=== PATIENT | female | born 1985 | race Asian ===

== ENCOUNTER 2024-06-03 22:40 | Inpatient (IN) | payer MEDICAID, SELFPAY ==
[2024-06-03 22:43] VITALS: BMI 31.8
[2024-06-03 23:08] VITALS: BP 169/95; PULSE 89; RESP 20; TEMP 37.3; O2SAT 97
--- NOTE | 2024-06-03 23:32 | XR_ITS ---
Examination: Abdomen sonogram, Limited Date and time of exam: June 03, 2024 11:43 PM Indications: Onset right upper abdominal pain beginning 4 days ago Technique: Real-time marinelli scale transabdominal sonographic images of the upper abdomen obtained. Findings: Cholelithiasis Thickened gallbladder wall 0.7 cm Common bile duct 0.4 cm Pancreatic head 3.2 cm Liver 12.4 cm right infiltration no focal liver lesions Normal hepatopedal portal venous flow Patent IVC Impression: Cholelithiasis Cholecystitis
--- NOTE | 2024-06-03 23:33 | PD.EDRME ---
Rapid Medical Screening Exam E Arrival date/time: 06/03/24 22:40 38F with history of gallstones presents to ED with 4 days of worsening RUQ pain and N/V. Patient denies dysuria, diarrhea, and vaginal bleeding. Chief Complaint: Abdominal Pain Vital signs: Vital Signs Temperature 99.1 F 06/03/24 23:08 Pulse Rate 89 06/03/24 23:08 Respiratory Rate 20 06/03/24 23:08 Blood Pressure 169/95 H 06/03/24 23:08 Pulse Oximetry (%) 97 06/03/24 23:08 Oxygen Delivery Method Room Air 06/03/24 23:08
[2024-06-04] VITALS (20 sets, daily range): BP systolic 144–187; BP diastolic 91–119; PULSE 80–100; RESP 15–26; TEMP 36.4–37.2; O2SAT 93–99; BMI 31.4
[2024-06-04 00:21] LABS: Basophils % (Auto) 0 % (0-2.5); Eosinophils % (Auto) 0 % (0-10); Hematocrit 41.7 % (36.0-46.0); Hemoglobin 14.4 g/dL (12.0-16.0); Immature Granulocytes % (Auto) 0 % (0-0); Immature Granulocytes Auto 0.05 Thou/mm3 (0.00-0.00); Lymphocytes # (Auto) 1.2 Thou/mm3 (1.0-4.8); Lymphocytes % (Auto) 9 % (10-50); Mean Corpuscular HGB Conc 34.5 g/dl (31.0-37.0); Mean Corpuscular Hemoglobin 29.6 pg (25.0-35.0); Mean Corpuscular Volume 86 fL (80-100); Monocytes # (Auto) 1.5 Thou/mm3 (0.0-0.8); Monocytes % (Auto) 10 % (0-12); Neutrophils # (Auto) 11.1 Thou/mm3 (1.8-7.7); Neutrophils % (Auto) 80 % (37-80); Nucleated Red Blood Cell % 0 /100 WBC (0); Platelet Count 316 Thou/mm3 (140-440); RDW Standard Deviation 40.3 fL (36.4-46.3); Red Blood Count 4.86 Miln/mm3 (4.00-5.20); White Blood Count 13.9 Thou/mm3 (3.6-11.0)
[2024-06-04 00:33] LABS: Alanine Aminotransferase 29 U/L (10-49); Albumin, Serum 4.6 gm/dL (3.5-5.0); Albumin/Globulin Ratio 1.5 (1.2-2.2); Alkaline Phosphatase 112 U/L (46-116); Anion Gap 10 (7-16); Aspartate Amino Transferase 16 U/L (0-34); BUN/Creatinine Ratio 10 Ratio (12-20); Bilirubin,Total 0.8 mg/dL (0.3-1.2); Blood Urea Nitrogen 8 mg/dL (9-23); Calcium 9.3 mg/dL (8.3-10.6); Calcium (Corrected) 9.3 mg/dL (8.5-10.1); Carbon Dioxide 26.2 mMol/L (20.0-31.0); Chloride 99 mMol/L (98-107); Creatinine (Component) 0.8 mg/dL (0.6-1.3); Estimated Creatinine Clearance 96.5 mL/min (>60); Glucose 130 mg/dL (74-106); Lipase 28 U/L (12-53); Osmolality,Calculated 270 (275-295); Potassium 3.9 mMol/L (3.4-5.1); Sodium 135 mMol/L (136-145); Total Protein 7.6 gm/dL (5.7-8.2); eGFR > 60 See Note
[2024-06-04] MEDS: MORPHINE SULF INJ 10 MG/ML VIAL 5 MG IVP (01:40)
[2024-06-04] MEDS: ONDANSETRON INJ 2 MG/ML INJ 2 ML 4 MG IV (01:40)
[2024-06-04] MEDS: PIPER/TAZO INJ 3.375 GM in SODIUM CHLORIDE 0.9% (Popper) 50 ML IV ×3 (01:45→21:29)
[2024-06-04 01:55] LABS: HCG Qualitative,Urine Negative
--- NOTE | 2024-06-04 02:03 | EDNOTE_ITS ---
ED Abdominal Pain RME/HPI General Chief Complaint: Abdominal Pain Stated complaint: Abdominal pain, NV x 4 days Time seen by provider: 06/04/24 05:54 Arrival date/time: 06/03/24 22:40 Source: patient and family Mode of arrival: ambulatory Limitations: no limitations RME / HPI RME / HPI narrative: DR CHACON MAIN ED EVALUATION: 38-year-old female with a history of gallstones who presents to the ED with four days of worsening right upper quadrant (RUQ) pain accompanied by nausea and vomiting. She denies dysuria, diarrhea, or vaginal bleeding. Related Data Allergies Allergy/AdvReac Type Severity Reaction Status Date / Time No Known Allergies Allergy Verified 06/03/24 22:42 Review of Systems Review of Systems Systems Reviewed: All systems reviewed, normal except as documented Past Medical History Past Medical History CARDIAC: Negative Congestive Heart Failure RESPIRATORY: Negative Chronic Obstructive Pulmonary Disease (COPD) GENITOURINARY: Negative Renal Disease ENDOCRINE: Negative Diabetes Mellitus Type 1 or Diabetes Mellitus Type 2 Social History SMOKING STATUS: Never smoker ED Exam Narrative Physical exam: GENERAL APPEARANCE: alert and oriented x 4, well-developed, well-nourished, no acute distress VITALS: All vitals were reviewed and the pulse ox is 98% on room air, which is normal according to my interpretation. HEENT: Normocephalic, atraumatic; pupils equal, round, reactive to light; EOMI; mucous membranes pink, moist; oropharynx clear NECK: Supple LUNGS: CTABL; no wheezes, no rales, no rhonchi HEART: Regular rate, regular rhythm; normal S1, S2; no murmurs ABDOMEN: non distended; normal BS; soft, no tenderness, no guarding, no rebound; no masses, no organomegaly, no hernia BACK: no CVA tenderness EXTREMITIES: atraumatic; no edema NEUROLOGIC: awake; alert and oriented x4; cranial nerves II-XII grossly intact; no focal sensory or motor deficits PSYCHIATRIC: appropriate mood and affect SKIN: warm, dry, normal color; no rashes General Limitations: Present no limitations Course Quality Measures none Orders Category Date Time Status IV [Insert IV] NOW Care 06/04/24 01:33 Active NPO NOW Care 06/04/24 01:21 Active Consult to General Surgery Stat Cons 06/04/24 01:45 Ordered Diet NPO (NOW) Diet 06/04/24 01:21 Active US gall bladder Stat Exams 06/03/24 23:32 Completed CBC Stat Lab 06/03/24 23:55 Completed CMP [Comprehensive Metabolic Panel] Stat Lab 06/03/24 23:55 Completed HCG Qualitative,Urine Stat Lab 06/04/24 00:41 Completed Lipase Stat Lab 06/03/24 23:55 Completed Morphine Inj Med 06/04/24 01:33 Discontinued 5 mg IVP X1 ONE Ondansetron Inj [Zofran Inj] Med 06/04/24 01:33 Discontinued 4 mg IV X1 ONE Piper/Tazo Inj [Zosyn Inj] 3.375 gm Med 06/04/24 01:19 Discontinued SODIUM CHLORIDE 0.9% (Popper) [NS 0.9% (Popper)] 50 ml IV X1 Vital Signs Vital signs: Vital Signs Temperature 99.1 F 06/03/24 23:08 Pulse Rate 89 06/03/24 23:08 Respiratory Rate 20 06/03/24 23:08 Blood Pressure 169/95 H 06/03/24 23:08 Pulse Oximetry (%) 97 06/03/24 23:08 Oxygen Delivery Method Room Air 06/03/24 23:08 Abdominal Pain MDM MDM Narrative MDM Narrative:: 0600 [facility]. Past medical, surgical, social and family history reviewed. Vitals and home medications reviewed. Results and treatment plan discussed. I will assume the care of the patient at this time and will follow the patient, pending consultation by Dr. Valles and final disposition. Scribe Attestation: I, Keshav Munson, am scribing for and in the presence of Dr. Chacon. Provider Notation: Although this document has been carefully reviewed, there may still be some phonetic and other typographical errors. These errors are purely grammatical due to imperfections in the software program and should not be construed in any way to compromise the substance of the patient's medical care during this visit. Patient data External records reviewed:: [facility] previous records Clinical information provided by:: patient Social determinants that could affect healthcare access:: none Patient has the following chronic illnesses:: see PMH How is presenting disease/condition affected by chronic disease/condition?: uneffected by Evaluation data The following diagnostics were reviewed and interpreted by me:: lab results and radiology exam(s) Lab and/or radiology exams considered but not ordered:: na Interpretation Summary: Examination: Abdomen sonogram, Limited Date and time of exam: June 03, 2024 11:43 PM Indications: Onset right upper abdominal pain beginning 4 days ago Technique: Real-time marinelli scale transabdominal sonographic images of the upper abdomen obtained. Findings: Cholelithiasis Thickened gallbladder wall 0.7 cm Common bile duct 0.4 cm Pancreatic head 3.2 cm Liver 12.4 cm right infiltration no focal liver lesions Normal hepatopedal portal venous flow Patent IVC Impression: Cholelithiasis Cholecystitis Dictated By: Lawrence Tirado MD Medications / Prescriptions Medications or Prescriptions considered but not ordered:: na Medication administrations:: Medication Administration History Discontinued Medications Piperacillin Sod/Tazobactam (Sod 3.375 gm/ Sodium Chloride) 50 mls @ 100 mls/hr IV X1 ONE Stop: 06/04/24 01:48 Last Infusion: 06/04/24 02:17 Dose: Infused Documented By: Admin: 06/04/24 01:45 Dose: 100 mls/hr Documented By: CVL Morphine Sulfate (Morphine Sulf Inj 10 Mg/Ml Vial) 5 mg IVP X1 ONE Stop: 06/04/24 01:34 Last Admin: 06/04/24 01:40 Dose: 5 mg Documented By: CVL Ondansetron HCl (Ondansetron Inj 2 Mg/Ml Inj 2 Ml) 4 mg IV X1 ONE Stop: 06/04/24 01:34 Last Admin: 06/04/24 01:40 Dose: 4 mg Documented By: CVL as above Consultations Consultation(s) initiated? (list below): Yes Consultation #1 (Physician, Specialty, Details): Dr. Valles made aware of the patient?s HPI, PMHx, lab and/or radiology results. Treatment plan was discussed. Accepts patient for consultation. Diagnosis Differential diagnosis abdominal pain: abdominal pain, acute appendicitis, endometriosis, gastroenteritis, pancreatitis and small bowel obstruction Most likely diagnosis given after review of the tests above:: Biliary colic Admission Indicated Admission indicated?: indicated Admission Request Was there a request for admission?: No Disposition Plan Disposition Plan: other (specify) (Sign out pending final disposition) Discharge Plan Prescriptions/Referrals Referrals: No Primary/Family,Physician [Primary Care Provider] - In 1 week Problem List Clinical Impression: Biliary colic Patient/Caregiver Discharge Instructions Print Language: Moldovan
--- NOTE | 2024-06-04 07:33 | PD.EDADDENDU ---
Emergency Room Addendum <Marisol Dubon - Last Filed: 06/04/24 09:42> Addendum Narrative: 0600: Care assumed from Dr. Chacon, the previous shift emergency physician. Past medical, surgical, social and family history reviewed. Vitals and home medications reviewed. I will assume the care of the patient at this time, pending consultation with Dr. Valles and final disposition. Please refer to the emergency department record for history and examination from initial visit.? Physical exam by me shows patient under no acute distress at this time. 07: Dr. Valles called back and states she will come see the patient at 0930 hours. 0940: Discussed test HPI, PMHx, lab, radiology results and/or management with Dr. Valles. Will admit for further evaluation and management. <Irving Mancuso MD - Last Filed: 06/04/24 09:43> Addendum Narrative: 0600: Care assumed from Dr. Chacon, the previous shift emergency physician. Past medical, surgical, social and family history reviewed. Vitals and home medications reviewed. I will assume the care of the patient at this time, pending consultation with Dr. Valles and final disposition. Please refer to the emergency department record for history and examination from initial visit.? Physical exam by me shows patient under no acute distress at this time. 07: Dr. Valles called back and states she will come see the patient at 0930 hours. 0940: Discussed test HPI, PMHx, lab, radiology results and/or management with Dr. Valles. Will admit for further evaluation and management. Dr. Odom arrived saw the patient and plans to admit the patient at 0940 hrs.
--- NOTE | 2024-06-04 10:02 | PD.SURHP ---
HPI HPI 38F presenting with abdominal pain. Pt reports she has had RUQ pain on and off for the past four days, which is worsened after eating and sometimes was very severe. Last night because the pain was unrelenting she presented to ER and underwent US suspicious for cholecystitis. This am pt reports feeling better with 3/10 pain, however she feels it is gradually worsening again and she is afraid to eat. She denies any associated nausea, fever or diarrhea. Pt reports she had similar symptoms 2 years ago and was planned for surgery but it was postponed because of , and she had not had symptoms again until this past week PMH: None PSHx: None Meds: None Allergies: NKDA Social hx: Nonsmoker Review of Systems Review of Systems ROS Unobtainable: All systems reviewed & no additional complaints except as documented Meds Home Medications and Allergies Allergies Allergy/AdvReac Type Severity Reaction Status Date / Time No Known Allergies Allergy Verified 06/03/24 22:42 Exam Vital Signs Temp Pulse Resp BP Pulse Ox O2 Del Method 98.9 F 87 18 166/99 H 96 Room Air 06/04/24 07:08 06/04/24 07:08 06/04/24 07:08 06/04/24 07:08 06/04/24 07:08 06/04/24 02:54 Constitutional Constitutional: no acute distress Routine Respiratory Exam Respiratory: Present no resp distress Routine Abdominal Exam Abdominal: Present soft and tenderness (mild RUQ tenderness); Absent distended, rebound or guarding Results Results: Laboratory Laboratory results: results reviewed Results: Imaging US - abdomen: report reviewed Assessment & Plan Plan 38F presenting with signs and symptoms of acute cholecystitis. I explained benefits/risks of surgery including need for conversion to open, bleeding, infection, hernia, injury to nearby structures requiring major reconstructive surgery which would require transfer to a tertiary center as well as possible biliary leak requiring postoperative drainage or ERCP. All questions were answered and pt is agreeable to proceeding Quality Measures Quality Measures none
[2024-06-04] MEDS: SODIUM CHLORIDE 0.9% 1000 ML 1,000 ML 125 ML IV (10:29)
--- NOTE | 2024-06-04 12:33 | ESOP_ITS ---
Date of Procedure 06/04/24 Pre Op Diagnosis Acute cholecystitis Post Op Diagnosis Same Procedure Laparoscopic cholecystectomy Findings Large edematous gallbladder with impacted stone Procedure Description After discussion of risks and benefits, patient was brought to the operating room, SCDs were placed and general anesthesia was induced. She received preoperative antibiotics and was prepped and draped in the usual sterile fashion. After timeout a supraumbilical incision was made and the skin was elevated while a Veress needle was placed to the incision. Proper positioning was confirmed with a drop test and the abdomen was insufflated to 15 mmHg. At that point the Veress needle was exchanged for a 5 mm camera using a [employer] te chnique. There were no signs of injury from the point of entry. 3 additional ports were placed under direct vision, one 12 mm at the epigastrium, one 5 mm right subcostal and one 5 mm right anterior axillary line. Patient was placed in reverse Trendelenburg with left side down. The gallbladder was noted to be significantly distended and was first aspirated with return of approximately 40 cc of bile. At that point the fundus was grasped and retracted cephalad and the infundibulum was grasped and retracted laterally. Blunt dissection was undertaken and as the gallbladder was very edematous with a thick rind around it, there were points of bleeding that were controlled with direct pressure. Ultimately the critical view of safety was achieved with blunt dissection and the cystic duct and cystic artery were clipped and transected in the usual fashion. Of note there was a small accessory artery posterior to the cystic artery which was also clipped and transected in the usual fashion. The gallbladder was removed from the gallbladder bed using electrocautery and the specimen was removed in an Endo Catch bag via the epigastric incision which had to be widened to accommodate the specimen. The gallbladder bed was examined and hemostasis was achieved with electrocautery and reinforced with Surgicel powder. The epigastric fascia was closed with a 0 Vicryl suture using a Johnson- omason. Again the gallbladder bed was examined and there were no signs of active bleeding. The incisions were irrigated and infiltrated with half percent Marcaine for a total of 30 cc. Incisions were closed with 4 Monocryl and reinforced with Dermabond. Patient was extubated and brought to PACU in stable condition Pathology / specimen Other (Gallbladder) Estimated Blood Loss 100 Surgeon Alexsu Valles MD Surgical Staff Operation Date: 06/04/24 11:15 Case Staff Anesthesiologist: Aroldo Mon RN First Assistant: Alondra Hutchinson
--- NOTE | 2024-06-04 12:51 | SUR.PHASEI ---
received pt and report from PAULA Luis and Dr. Frost. Pt resting with eyes closed, no distress noted. bp slightly elevated, Dr Frost at bedside and made aware. will continue to monitor. dermabond dressing to abd x4, cdi. IV to left land intact, no s/s of infiltration or redness noted. will cont to monitor
--- NOTE | 2024-06-04 12:58 | SUR.PHASEI ---
Dr Tim at bedside, MD made aware pt's bp is still elevated, orders received.
[2024-06-04] MEDS: LABETALOL INJ 5 MG/ML VIAL 20 ML IVP ×3 (13:12→13:31)
--- NOTE | 2024-06-04 13:25 | SUR.PHASEI ---
Dr betts at bedside, MD made aware pt states she has not taken home BP meds in a few days. Pt states she does not remember the last time she took her BP meds.
--- NOTE | 2024-06-04 13:33 | SUR.PHASEI ---
pt recovering well, no distress noted, pt resting with eyes closed. dressing remains cdi, iv remains intact no s/s of infiltration or redness to site. will continue to monitor
--- NOTE | 2024-06-04 14:20 | SUR.PHASEI ---
pt tolerating ice chips, denies any nausea. Pt denies any pain at this time. will continue to monitor
--- NOTE | 2024-06-04 15:00 | SUR.PHASEI ---
Pt c/o 07/20 abd pain, will administer pain meds as ordered.
[2024-06-04] MEDS: MORPHINE SULF INJ 10 MG/ML VIAL 4 MG IVP (15:06)
--- NOTE | 2024-06-04 15:10 | SUR.PHASEI ---
pt c/o being hungry,, pt on a clear liquid diet. Pt tolerating jello and water at this time.
--- NOTE | 2024-06-04 15:50 | SUR.PHASEI ---
report given to PAULA Ac. Pt recovering well, pt denies headache, nausea, and pain. dressing to abd remains CDI. IV still intact, no s/s of infiltration or redness noted.. vss. BP remains at's patient's baseline.
[2024-06-04] MEDS: Lisinopril 2.5 MG TABLET 10 MG PO (17:02)
[2024-06-05] VITALS: BP 147/93; PULSE 93; RESP 17; TEMP 37.2; O2SAT 95
[2024-06-05] MEDS: IBUPROFEN TAB 600 MG TABLET PO (01:07)
[2024-06-05 03:09] VITALS: PULSE 95; RESP 18; RESP 93
[2024-06-05 04:00] VITALS: BP 132/95; PULSE 89; RESP 18; TEMP 36.6; O2SAT 96
[2024-06-05] MEDS: PIPER/TAZO INJ 3.375 GM in SODIUM CHLORIDE 0.9% (Popper) 50 ML IV (05:55)
[2024-06-05 07:25] VITALS: PULSE 90; RESP 20; RESP 95
[2024-06-05 08:00] VITALS: BP 133/88; PULSE 91; RESP 18; TEMP 36.4; O2SAT 94
[2024-06-05 08:49] VITALS: BP 133/88; PULSE 91
[2024-06-05] MEDS: Lisinopril 2.5 MG TABLET 10 MG PO (08:49)
--- NOTE | 2024-06-05 10:38 | ESPR_ITS ---
Documentation for date of: 06/05/24 Subjective Subjective Brief History: 38F presenting with abdominal pain. Pt reports she has had RUQ pain on and off for the past four days, which is worsened after eating and sometimes was very severe. Last night because the pain was unrelenting she presented to ER and underwent US suspicious for cholecystitis. This am pt reports feeling better with 3/10 pain, however she feels it is gradually worsening again and she is af raid to eat. She denies any associated nausea, fever or diarrhea. Pt reports she had similar symptoms 2 years ago and was planned for surgery but it was postponed because of , and she had not had symptoms again until this past week PMH: None PSHx: None Meds: None Allergies: NKDA Social hx: Nonsmoker Narrative: Pain controlled, no nausea, tolerating liquids, vitals normal Exam Vital Signs Temp Pulse Resp BP Pulse Ox O2 Del Method O2 Flow Rate 97.6 F 91 18 133/88 H 94 L Room Air 2 06/05/24 08:00 06/05/24 08:49 06/05/24 08:00 06/05/24 08:49 06/05/24 08:00 06/05/24 08:00 06/05/24 04:00 Constitutional Constitutional: no acute distress Routine Respiratory Exam Respiratory: Present no resp distress Routine Abdominal Exam Abdominal: Present soft; Absent tenderness or distended Results Results: Laboratory Laboratory results: results reviewed Assessment & Plan Plan 38F presenting with acute cholecystitis s/p lap linda 06/04, recovering well DC today Procedures Procedures Laparoscopic cholecystectomy
--- NOTE | 2024-06-05 10:38 | ESDS_ITS ---
Planned Discharge Date 06/05/24 DS: Providers Provider Date of admission: 06/04/24 09:46 Primary care physician: Physician No Primary/Family Admitting Provider: Alexus Valles MD Attending Provider on Admission: Alexus Valles MD Consults: 06/04/24 01:45 Consult to General Surgery Stat Comment: Consulting Provider: Alexus Valles Attending Provider on DC: Alexus Valles MD Discharging Provider: Alexus Valles MD Diagnosis Discharge Diagnosis (1) Acute cholecystitis: Status: Acute Problem List Completed Was Problem List Reviewed/Reconciled?: Yes Hospital Course 38F presenting with signs and symptoms of acute cholecystitis s/p lap linda 06/04 recovering well Exam Vital Signs Temp Pulse Resp BP Pulse Ox O2 Del Method O2 Flow Rate 97.6 F 91 18 133/88 H 94 L Room Air 2 06/05/24 08:00 06/05/24 08:49 06/05/24 08:00 06/05/24 08:49 06/05/24 08:00 06/05/24 08:00 06/05/24 04:00 Constitutional Constitutional: no acute distress Routine Respiratory Exam Respiratory: Present no resp distress Routine Abdominal Exam Abdominal: Present soft; Absent tenderness or distended Discharge Plan Plan Patient Disposition: HOME (Self Care) Prescriptions/Referrals Prescriptions/Med Rec: New oxycodone-acetaminophen [Percocet] 5-325 mg tablet 1 tab PO Q6H MDD 6 tabs PRN (Reason: pain) Qty: 10 0RF Referrals: Alexus Valles MD [Physician] - (You will receive a phone call to confirm a follow-up appt with me in 2 weeks) No Primary/Family,Physician [Primary Care Provider] - Patient/Caregiver Discharge Instructions Other Discharge Activity Instructions:: Avoid lifting objects >10lbs for 6 weeks You may resume showering tomorrow 06/06 Avoid bathing or swimming for 2 weeks Your stitches have skin glue which will fall off on its own in a matter of weeks Your stitches will not need to be removed If you develop worsening pain, nausea/vomiting, fever or jaundice please seek care in ER Education Materials: After Gallbladder Surgery, Preventing Surgical Site Infections Print Language: Russian Stand Alone Forms: Evelyn Award Info., Patient Portal Info Letter Discharge Order Discharge Orders: Discharge (Routine); Ordered 06/05/24 Ordered By: Alexus Valles Results Results: Laboratory Laboratory results: results reviewed Results: Imaging US - abdomen: report reviewed Procedures Procedure Date 06/04/24 Procedures Laparoscopic cholecystectomy
== END 2024-06-05 11:43 | disposition home or self-care (01) | DRG 263 ==
LOC: SERX 06-04 09:44 → SERHOLD 06-04 10:09 → S3NX 06-04 16:01
PROVIDERS: Physician Assistant; Admitting Provider Surgery; Emergency Provider Emergency Medicine; Visit Provider Surgery
PROC: 0FT44ZZ Resection of Gallbladder, Percutaneous Endoscopic Approach (ICD-10-PCS; CPT 47562; principal; 2024-06-04 11:00)
DX: K80.00 Calculus of gallbladder with acute cholecystitis without obstruction (principal); K82.8 Other specified diseases of gallbladder
CPT/HCPCS: 36415; 76705; 80053; 81025; 83690; 85025; 96365; 96375; 99285; A4217; A4649; J2250; J2270; J2405; J2543; J2704; J3010; J3490; J7030; J7050; A9270; J1920

== ENCOUNTER 2024-06-19 10:43 | Outpatient (AMB) | payer MEDICAID, SELFPAY ==
--- NOTE | 2024-06-19 11:11 | GSCOFFNT_ITS ---
Vital Signs - [facility] 06/19/24 11:12 Height 1.6 m Height Method Stated Weight 82.129 kg Weight Measurement Method Standing Scale BMI 32.1 BP 132/89 H Blood Pressure Source Automatic Cuff Blood Pressure Location Left Upper Arm Position Sitting Respiration 18 Pulse 89 Pulse Source Monitor Temp 97.7 F Temp Source Temporal Artery Scan Pulse Oximetry (%) 94 L Oxygen Delivery Method Room Air Med/Allergies Allergies & Medications Allergies No Known Allergies Allergy (Verified 06/19/24 11:13) Medication Reconciliation oxycodone-acetaminophen 5 mg-325 mg tablet (Percocet) 1 tab PO Q6H PRN pain #10 tabs 06/05/24 [Rx Confirmed 06/19/24] MA Intake Visit Data Collection New Patient or Established: Established Patient (seen at [facility] within 3 years) Seen by Clinical Staff ONLY (RN/MA): No Reason for Visit:: FOLLOW UP Pain Present Currently: No Jigsawyer Required: No PCP or OBGYN visit in last 3 months: Yes Hx Now: No Do You Feel Safe at Home: Yes Authorities Contacted: N/A Smoking Status Smoking Status: Never smoker Immunization / Flu Flu Vaccine in the Last 12 Months: No Flu Vaccine Exclusion Criteria: No Exclusion Criteria Past Medical History Past Medical History NEUROLOGIC: Negative Seizures CARDIAC: Positive Hypertension (Gestational); Negative Congestive Heart Failure RESPIRATORY: Negative Chronic Obstructive Pulmonary Disease (COPD) GENITOURINARY: Negative Renal Disease ENDOCRINE: Negative Diabetes Mellitus Type 1 or Diabetes Mellitus Type 2 OTHER HISTORY: Negative Blood Transfusions, Blood Transfusion Reaction or Anesthesia Reactions Social History SMOKING STATUS: Smoking status: Never smoker SECOND HAND EXPOSURE: second hand exposure: No ALCOHOL: Alcohol Intake: Current ALCOHOL FREQUENCY: Alcohol Intake Frequency: holidays/special occasions only HOUSING: Housing: House LIVES WITH: Lives With: Children and Family HPI HPI Narrative 38F who presented with acute cholecystitis s/p lap linda 06/04 here for planned follow up. Pt reports feeling well overall, but she still has some discomfort in the RUQ adjacent to her epigastric incision. She denies any nausea, fever, jaundice or diarrhea; she is eating well and not taking any pain medications at the moment. She did not use all of the pain meds that were prescribed after surgery ROS Review of Systems Systems Reviewed: All systems reviewed, normal except as documented Objective/Exam General General Appearance: alert, cooperative and well groomed Resp Respiratory exam: Absent respiratory distress Abdominal Abdominal exam: Present soft and incision (c/d/i, no erythema, no fluctuance or tenderness); Absent distention or tenderness Results Pathology of gallbladder reviewed Assessment & Plan Diagnosis / Problem List (1) Acute cholecystitis: Status: Acute Assessment & Plan: 38F s/p lap linda 06/04, recovering well overall. Pt understands she should avoid strenuous activity including lifting objects >10lbs for 6 weeks postop Plan: Follow up as needed Office Procedures GNS Level of Care Nursing/Assessment Patient Status: Established Patient Nursing Assessment/Reassesment: Medication Reconciliation, Update PMH in EMR and Vital Signs Coordination of Care: Complex Care and Chronic Disease 1-5, Consent,records obtained, informed consent, Education Simp Pt/Fam and Staff clarify orders Established Patient Charge Established Patient Point Assignment: 85 Established Patient Point Charge: EP Level 3 (80-115) Patient Portal Questionaires Social History Living Situation History Housing: House Tobacco History Smoking Status: Never smoker Second Hand Smoke Exposure: No Alcohol History Alcohol Intake: Current Alcohol Intake Frequency: holidays/special occasions only Domestic Abuse History Do You Feel Safe at Home: Yes Review of Systems Report any current symptoms Only answer those that you have currently: Past Medical History Past Medical History Have you ever been diagnosed with any of the following: Neurological Problems Seizures: No Cardiology Problems Congestive Heart Failure: No Hypertension: Yes (Gestational) Respiratory Problems Chronic Obstructive Pulmonary Disease (COPD): No Genital/Urinary Problems Renal Disease: No Endocrine Problems Diabetes Mellitus Type 1: No Diabetes Mellitus Type 2: No Other Problems Blood Transfusions: No Blood Transfusion Reaction: No Anesthesia Reactions: No
[2024-06-19 11:12] VITALS: BP 132/89; PULSE 89; RESP 18; TEMP 36.5; O2SAT 94; BMI 32.1
== END 2024-06-19 11:14 | disposition home or self-care (01) ==
LOC: HODSRG 10:43
PROVIDERS: Supervising Provider Surgery; Visit Provider Surgery
DX: K81.0 Acute cholecystitis (principal)
CPT/HCPCS: 99213; G0463

== ENCOUNTER 2025-03-30 18:32 | Emergency (ER) | payer SELFPAY ==
[2025-03-30 20:00] VITALS: BP 168/110; PULSE 97; RESP 18; TEMP 36.9; O2SAT 100; BMI 32.4
--- NOTE | 2025-03-30 20:14 | EDNOTE_ITS ---
ED Eye Problem RME/HPI General Chief complaint: Eye Problems Stated complaint: R EYE PAIN SINCE LAST NIGHT. EYE LASH GLUE FELL IN Time Seen by Provider: 03/30/25 20:11 Arrival date/time: 03/30/25 18:32 39F with no significant PMH presents to ED with R eye irritation after she accidentally got some eye lash glue in there. She rinsed it out but still feels something. Patient does wear contacts. Limitations: no limitations Related Data Previous Rx's ?Medication ?Instructions ?Recorded oxycodone-acetaminophen 5 mg-325 1 tab PO Q6H PRN pain #10 tabs 06/05/24 mg tablet (Percocet) tobramycin 0.3 % eye drops 2 drp ophthalmic (eye) QID 5 days 03/30/25 #5 mL Allergies Allergy/AdvReac Type Severity Reaction Status Date / Time No Known Allergies Allergy Verified 03/30/25 18:36 Review of Systems Review of Systems Systems Reviewed: All systems reviewed, normal except as documented Eyes Eyes: Reports as per HPI and Reports irritation Past Medical History Past Medical History NEUROLOGIC: Negative Seizures CARDIAC: Positive Hypertension (Gestational); Negative Congestive Heart Failure RESPIRATORY: Negative Chronic Obstructive Pulmonary Disease (COPD) GENITOURINARY: Negative Renal Disease ENDOCRINE: Negative Diabetes Mellitus Type 1 or Diabetes Mellitus Type 2 OTHER HISTORY: Negative Blood Transfusions, Blood Transfusion Reaction or Anesthesia Reactions Social History SMOKING STATUS: Never smoker SECOND HAND EXPOSURE: No ED Exam General Limitations: Present no limitations General appearance: Present alert and in no apparent distress Head Head exam: Present atraumatic Eye Eye exam: Present PERRL and EOMI Expanded Eye Exam Sclera/Conjunctival: right: injection Neck Neck exam: Present normal inspection, full ROM and trachea midline Chest Chest inspection: Present normal inspection and symmetric chest wall rise Neurological Exam Neurological exam: Present alert and oriented X3 Psychiatric Psychiatric exam: Present normal affect and normal mood Skin Skin exam: Present warm, dry, intact and normal color Course Quality Measures none Orders Category Date Time Status ED Eye Irrigation ONCE Care 03/30/25 20:11 Active Whitlock Lamp to Bedside X1 Care 03/30/25 20:11 Active Fluorescein Sodium [Bio-Tanesha] Med 03/30/25 20:11 Discontinued 1 mg RIGHT EYE X1 ONE TETRACAINE Op Samira 0.5% [Pontocaine Op Samira 0.5%] Med 03/30/25 20:11 Discontinued 1 drop RIGHT EYE X1 ONE Tobramycin Op Samira 0.3% [Tobrex Op Samira 0.3%] Med 03/30/25 20:11 Discontinued See Dose Instructions RIGHT EYE X1 ONE Vital Signs Vital signs: Vital Signs Temperature 98.4 F 03/30/25 20:00 Pulse Rate 97 03/30/25 20:00 Respiratory Rate 18 03/30/25 20:00 Blood Pressure 168/110 H 03/30/25 20:00 Pulse Oximetry (%) 100 03/30/25 20:00 Oxygen Delivery Method Room Air 03/30/25 20:00 O2 at 100% on RA and WNLs Eye MDM Narrative MDM Narrative:: 39F with no significant PMH presents to ED with R eye irritation after she accidentally got some eye lash glue in there. She rinsed it out but still feels something. Patient does wear contacts. Physical exam reveals R eye redness. Normal pupil response and EOM. Patient is afebrile, calm, and alert. Wood's lamp exam reveals corneal abrasion on L upper pupil area. ABX prophylaxis and chief counsel given. Patient data External records reviewed:: [facility] previous records Clinical information provided by:: patient Social determinants that could affect healthcare access:: none Patient has the following chronic illnesses:: none How is presenting disease/condition affected by chronic disease/condition?: no chronic disease Evaluation data The following diagnostics were reviewed and interpreted by me:: other (specify) (none) Lab and/or radiology exams considered but not ordered:: not ordered Interpretation Summary: n/a Medications / Prescriptions Medications or Prescriptions considered but not ordered:: ordered Medication administrations:: Medication Administration History Discontinued Medications Fluorescein Sodium (Fluorescein Sod 1 Mg Strp) 1 mg RIGHT EYE X1 ONE Stop: 03/30/25 20:12 Last Admin: 03/30/25 20:26 Dose: 1 mg Documented By: OA Tetracaine HCl (Tetracaine Pf Op Samira 0.5% 4 Ml Drpette) 1 drop RIGHT EYE X1 ONE Stop: 03/30/25 20:12 Last Admin: 03/30/25 20:41 Dose: 1 drop Documented By: OA Tobramycin Sulfate (Tobramycin Op Samira 0.3% 5 Ml Btl) 0 drop RIGHT EYE X1 ONE Stop: 03/30/25 20:12 Last Admin: 12/19/25 20:26 Dose: 1 drop Documented By: OA above Consultations Consultation(s) initiated? (list below): No Diagnosis Eye Problem Differential Diagnosis: corneal abrasion, conjunctivitis, acute iritis, hyphema, periorbital cellulitis, subconjunctival hemorrhage, glaucoma, corneal ulcer and ruptured globe Most likely diagnosis given after review of the tests above:: corneal abrasion Admission Indicated Admission indicated?: not indicated Admission Request Was there a request for admission?: No Disposition Plan Disposition Plan: Discharge Discharge Attestation Discharge Attestation: The patient and all family members were given an opportunity to ask questions and understood the discharge instructions. Discharge instructions specifically effects, indications for sooner follow up or return to the emergency department, and the expected course of current diagnosis. Patient condition: Stable Discharge Plan Plan Patient Disposition: HOME (Self Care) Discharge Disposition comment: Stable Prescriptions/Referrals Prescriptions/Med Rec: New tobramycin 0.3 % drops 2 drp ophthalmic (eye) QID 5 Days Qty: 5 0RF No Action oxycodone-acetaminophen [Percocet] 5-325 mg tablet 1 tab PO Q6H MDD 6 tabs PRN (Reason: pain) Qty: 10 0RF Problem List Clinical Impression: Corneal abrasion Patient/Caregiver Discharge Instructions Education Materials: ED Corneal Abrasion Additional Instructions: Please follow-up with PCP within 24-48 hours and return immediately if symptoms worsen. No contacts until eye fully healed. See eye doctor in the next few days. Print Language: Latvian Stand Alone Forms: Patient Portal Info Letter CLEMENTINE/BOSSMAN Supervising Physician CLEMENTINE/BOSSMAN Supervising Physician: Dr. Johnson
[2025-03-30] MEDS: FLUORESCEIN SOD 1 MG STRP RIGHT EYE (20:26)
[2025-03-30] MEDS: TOBRAMYCIN OP SOL 0.3% 5 ML BTL RIGHT EYE (20:26)
[2025-03-30] MEDS: TETRACAINE PF OP SOL 0.5% 4 ML DRPETTE 1 DROP RIGHT EYE (20:41)
== END 2025-03-30 21:42 | disposition home or self-care (01) ==
LOC: SERX 21:22
PROVIDERS: Emergency Provider Emergency Medicine
DX: S05.01XA Injury of conjunctiva and corneal abrasion without foreign body, right eye, initial encounter (principal); W44.G9XA Other non-organic objects entering into or through a natural orifice, initial encounter
CPT/HCPCS: 99282